=== PATIENT | male | born 1990 | race Two or more races ===

== ENCOUNTER → 2016-05-24 | Outpatient (CLI) | payer BC ==
[2016-05-24 13:03] LABS: MEAN CORPUSCULAR HEMOGLOBIN 29.1 pg (27.0-33.0); MEAN CORPUSCULAR HGB CONC 33.6 g/dl (32.0-36.5); MEAN CORPUSCULAR VOLUME 86.7 fl (80.0-96.0); RED CELL DISTRIBUTION WIDTH 12.3 % (11.5-14.5); WHITE BLOOD COUNT 6.4 K/mm3 (4.0-10.0)
[2016-05-24 13:36] LABS: ALBUMIN 4.3 GM/DL (3.2-5.2); ALBUMIN/GLOBULIN RATIO 1.23 (1.00-1.93); ALKALINE PHOSPHATASE 85 U/L (45-117); ALT/SGPT 29 U/L (12-78); ANION GAP 6 MEQ/L (8-16); AST/SGOT 14 U/L (15-37); BILIRUBIN,TOTAL 0.3 MG/DL (0.2-1.0); BLOOD UREA NITROGEN 11 MG/DL (7-18); CARBON DIOXIDE LEVEL 31 MEQ/L (21-32); CHLORIDE LEVEL 106 MEQ/L (98-107); CHOLESTEROL LEVEL 176 MG/DL (<200); CREATININE FOR GFR 0.85 MG/DL (0.70-1.30); GLOMERULAR FILTRATION RATE > 60.0 (>60); GLUCOSE, FASTING 83 MG/DL (70-105); POTASSIUM SERUM 4.4 MEQ/L (3.5-5.1); SODIUM LEVEL 143 MEQ/L (136-145); TOTAL IRON BINDING CAPACITY 364 UG/DL (250-450); TOTAL PROTEIN 7.8 GM/DL (6.4-8.2); TRIGLYCERIDES LEVEL 198 MG/DL (<150)
== END ==
LOC: M LAB 10:24
PROVIDERS: ATTEND Family Medicine
DX: D64.9 Anemia, unspecified (principal)

== ENCOUNTER → 2016-10-31 | Outpatient (CLI) | payer BC ==
--- NOTE | 2016-11-01 02:29 | REP ---
Clinical: Pain. Technique: AP, lateral, bilateral oblique views right foot . Findings: The osseous structures and joint spaces are intact and normal. There is no definite evidence for acute fracture or dislocation; subtle nondisplaced fracture at the base of the first toe distal phalanx should be correlated physically. Surrounding soft tissues are unremarkable. No subcutaneous emphysema or radiodense foreign body. Impression: Relatively normal examination. However, subtle nondisplaced fracture involving the first toe distal phalanx cannot be excluded and should be correlated with physical examination. No acute fracture or dislocation otherwise appreciated . Signed by Terrence Hunt MD 11/01/2016 02:20 A
== END ==
LOC: M LAB 15:47
PROVIDERS: ATTEND Family Medicine
DX: M79.674 Pain in right toe(s) (principal)

== ENCOUNTER 2017-03-13 07:13 | Day surgery (SDC) | payer BC ==
[~2017-03-13] VITALS: Ht 172.7 cm; Wt 78.5 kg
[~2017-03-13 07:13] MED LIST: LIAL1.2T PO; MULT1TAB10 PO
[2017-03-13] MEDS ORDERED: NS 1,000 ML IV ONE (08:00)
[2017-03-13] MEDS ORDERED: PROPOFOL 200 MG/20 ML VIAL As Ordered ONE ×3 (08:05→08:36)
--- NOTE | 2017-03-13 08:35 | ROOR ---
Patient Name: Vikash Cheek Procedure Date: 03/13/2017 8:09 AM Date of : 1990 Age: 26 Room: [id number] Gender: Male Note Status: Finalized Procedure: Total Colonoscopy to Cecum + Ileoscopy + Bx. 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 Procedure: Pre-Anesthesia Assessment: - The heart rate, respiratory rate, oxygen saturations, blood pressure, adequacy of pulmonary ventilation, and response to care were monitored throughout the procedure. The Colonoscope was introduced through the anus and advanced to the terminal ileum, with identification of the appendiceal orifice and IC valve. The colonoscopy was performed without difficulty. The patient tolerated the procedure well. The quality of the bowel preparation was excellent. Findings: The perianal and digital rectal examinations were normal. A patchy area of moderately altered vascular, congested, erythematous and inflamed mucosa was found in the recto-sigmoid colon. Biopsies were taken with a cold forceps for histology. The exam was otherwise without abnormality on direct and retroflexion views. Multiple biopsies were obtained with cold forceps for histology in the ascending colon. The terminal ileum appeared normal. The exam was otherwise without abnormality. Impression: - Altered vascular, congested, erythematous and inflamed mucosa in the recto-sigmoid colon. Biopsied. - The examination was otherwise normal on direct and retroflexion views. - The examined portion of the ileum was normal. - The examination was otherwise normal. - Biopsies performed in the ascending colon. - The exam was otherwise normal to the cecum. Recommendation: - Patient has a contact number available for emergencies. The signs and symptoms of potential delayed complications were discussed with the patient. Return to normal activities tomorrow. Written discharge instructions were provided to the patient. - High fiber diet. - Discharge patient to home. - Continue present medications. - Await pathology results. - Telephone GI clinic for pathology results in 1 week. - Repeat colonoscopy for surveillance based on pathology results. - Return to referring physician. - The findings and recommendations were discussed with the patient's family. Gabe Trujillo MD Gabe Trujillo MD 03/13/2017 8:34:47 AM This report has been signed electronically. Number of Addenda: 0 Note Initiated On: 03/13/2017 8:09 AM Estimated Blood Loss: Estimated blood loss: none.
[2017-03-13 08:50] VITALS: BP 111/67
== END 2017-03-13 09:25 | disposition home or self-care (01) ==
LOC: M OPP 07:13
PROVIDERS: ATTEND Internal Medicine Gastroenterology
DX: K51.30 Ulcerative (chronic) rectosigmoiditis without complications (principal); K52.9 Noninfective gastroenteritis and colitis, unspecified; K63.89 Other specified diseases of intestine; Z79.899 Other long term (current) drug therapy